=== PATIENT | male | born 1955 | race Caucasian/White ===

== ENCOUNTER 2024-04-01 06:21 | Observation (INO) ==
--- NOTE | 2024-03-05 12:44 | PAT Medication Instructions ---
Medication Instructions Date of Service March 05, 2024 Home Medications Medication Instructions Recorded ondansetron 4 mg disintegrating 4 mg PO Q6H PRN nausea and 07/02/23 tablet vomiting #10 tabs oxycodone 5 mg tablet 5 - 10 mg (1 - 2 x 5 mg) PO Q4H 07/02/23 PRN pain #8 tabs meloxicam 15 mg tablet 15 mg PO HS ondansetron 4 mg disintegrating tablet 4 mg PO Q6H PRN nausea and vomiting oxycodone 5 mg tablet 5 - 10 mg (1 - 2 x 5 mg) PO Q4H PRN pain tadalafil 5 mg tablet (Cialis) 5 mg PO DAILY PRN Sexual Activity ASK your surgeon for instructions meloxicam 15 mg tablet 15 mg PO HS STOP taking 24 hours before surgery tadalafil 5 mg tablet (Cialis) 5 mg PO DAILY PRN Sexual Activity Take morning of surgery With a small sip of water, OTHERWISE NOTHING TO EAT OR DRINK AFTER MIDNIGHT: ondansetron 4 mg disintegrating tablet 4 mg PO Q6H PRN nausea and vomiting (if needed) oxycodone 5 mg tablet 5 - 10 mg (1 - 2 x 5 mg) PO Q4H PRN pain (if needed) Take evening before surgery ondansetron 4 mg disintegrating tablet 4 mg PO Q6H PRN nausea and vomiting (if needed) oxycodone 5 mg tablet 5 - 10 mg (1 - 2 x 5 mg) PO Q4H PRN pain (if needed) Other Notes If you have any questions please call us at [phone] or [phone] or [phone] or [phone]
--- NOTE | 2024-03-18 11:17 | Anesthesiology Consultation ---
Date of Service March 18, 2024 Assessment & Plan (1) Encounter for pre-operative examination: - Outpatient joint assessment: Patient is currently scheduled for inpatient pathway. If re-evaluated and patient/surgeon requests outpatient pathway, patient is acceptable candidate for outpatient joint program from anesthesia standpoint pending surgeon's office assessment of pt motivation/support/completion of same day joint program preop requirements. Chart Review Chart Review: Acceptable Risk for Surgery and Patient seen in Pre Admission Testing Teaching & Discussion Pre-Anesthesia Teaching/Discussion Notes: Instructed NPO after midnight before surgery, except medications with 15 cc of water. Medication instructions provided according to the PAT guidelines. History Surgery Operation Date: 04/01/24 07:00 Proposed Procedures p Left Unicompartmental Versus - Rodger Damon MD s Total Knee Arthroplasty - Rodger Damon MD Height/Weight Height: 5 ft 10.5 in Weight: 89.4 kg Allergies Allergy/AdvReac Type Severity Reaction Status Date / Time Penicillins AdvReac Mild Hives Verified 03/03/24 11:26 Medications Home Medications Medication Instructions Recorded Confirmed Last Taken meloxicam 15 mg tablet 15 mg PO HS 06/26/23 03/03/24 Unknown ondansetron 4 mg disintegrating 4 mg PO Q6H PRN nausea and 07/02/23 03/03/24 Unknown tablet vomiting #10 tabs oxycodone 5 mg tablet 5 - 10 mg (1 - 2 x 5 mg) PO Q4H 07/02/23 03/03/24 Unknown PRN pain #8 tabs tadalafil 5 mg tablet (Cialis) 5 mg PO DAILY PRN Sexual Activity 03/03/24 03/03/24 Unknown Past Medical History Medical History (Updated 03/18/24 @ 11:14 by Lorena Garcia PA-C) GERD (gastroesophageal reflux disease) controlled, stable per pt History of anal fissures years ago>repaired Intermetatarsal bursitis Left knee DJD Plantar fasciitis of left foot Tendinitis of left ankle Patient denies h/o stroke, seizures, heart attack, heart failure, DM, HTN, blood clots/DVTs or blood transfusions. Exercise / Class Metabolic Activity II 4-5 Yardwork/Stairs/Walk up hill (denies chest discomfort or shortness of breath with one flight of stairs) Past Family History Family History (Updated 03/18/24 @ 11:13 by Lorena Garcia PA-C) Sister Diabetes Past Surgical History Surgical History History of arthroscopy of right knee (2006) Hx of arthroscopy of left knee (07/02/23) Hx of colonoscopy Past Anesthesia History No Hx of Anesthesia Complications and No Family Hx of Anesthesia Complications History of PONV No Hx of PONV and Hx of Motion Sickness Social History Smoking Status: Never smoker Do You Dip or Chew Tobacco: No Hx Alcohol Use: No Hx Substance Use: No substance use type: does not use Review of Systems Patient denies chest pain, shortness of breath, dyspnea on exertion, snoring, witnessed apneas, fever, chills, cough, wheezing, or palpitations. Physical Exam Vital Signs Vitals BP 145/91 P 73 TEMP 98.6 SP02 94% on RA RESP 17 Physical Patient resting comfortably in chair in no acute distress, alert and oriented, responding appropriately throughout visit Full cervical extension range of motion without pain TMD 3.5 finger breadths Mallampati Score 2 Dentition: one crown and permanent wire across back of lower teeth, denies chipped or loose teeth, caps, implants or bridges Lungs: normal respiratory effort. Good air movement, clear throughout to auscultation, no adventitious breath sounds Cardiac: regular rate and rhythm, no murmurs noted Carotid arteries: negative bruit bilat Lab Results Anesthesia Preop Results Results Anesthesia Widget: WBC 5.48 K/ul (4.8-10.8) 03/18/24 Hgb 16.4 g/dl (14.0-18.0) 03/18/24 Hct 47.2 % (42.0-52.0) 03/18/24 Plt 181 K/uL (130-400) 03/18/24 PT 10.8 Seconds (9.0-12.0) 03/18/24 PTT 26 Seconds (21-31) 03/18/24 INR 1.0 (0.9-1.1) 03/18/24 Blood Type A Positive 03/18/24 Antibody Screen NEGATIVE 03/18/24 Testing Laboratory Results 02/01/24 SODIUM: 139 POTASSIUM: 4.2 CHLORIDE: 103 CO2: 26 BUN: 14 CREATININE: 1.1 GLUCOSE: 103 Electrocardiogram Date: 04/29/23 NSR, rate 63 bpm Chest X-Ray Date: 03/18/24 No acute cardiopulmonary findings.
--- NOTE | 2024-03-28 10:07 | History & Physical Report ---
Date of Service March 28, 2024 Assessment & Plan (1) Left knee DJD: 68-year-old fairly active male in labor with a work-related injury over a year ago and history of a knee arthroscopy back in June without much relief. X- rays of showed progressive loss of his knee joint is developed progressive medial compartment arthritis. He is failed conservative measures. Plan: We talked about treatment options. He would like to proceed with definitive treatment. This is going to be some type of knee replacement. He is a good candidate for partial knee replacement specially with his work I think it will be better for him and suit him better. When taken the operating do left partial knee replacement. If we get in there and there is too much cell arthritis elsewhere we will proceed with a full knee replacement for the rest cement above these procedures were explained and he understands and desires to p terrenceeed. Informed consent was obtained. He is planned to be in the hospital overnight and do therapy next morning and hopeful discharge postop day 1. Plan on DVT prophylaxis including thigh-high teds, SCDs, aspirin twice a day. History of Present Illness Chief Complaint: . Persistent left medial knee pain after previous knee arthroscopy Primary Care Provider: Tiffany Granda MD . Patient is a 68-year-old gentleman who presents for persistent left medial knee pain and discomfort. 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 He injured his knee a with a Worker's Comp. related injury back in January of last year. He was stepping down off something and twisted his knee and acute onset of pain. He was treated by Dr. Feng had his knee scope back in June. I really never got much relief from this. His symptoms are just gradually gotten worse as time goes on. Has had more more bad days. Pain is almost all medially. Occurs think with increasing twisting activities. He is taken multiple different medicines without much relief. Minimal relief with a single injection. He now would like to have something more definitive done. Allergies Allergy/AdvReac Type Severity Reaction Status Date / Time Penicillins AdvReac Mild Hives Verified 03/03/24 11:26 Home Medications Medication Instructions Recorded Confirmed Type meloxicam 15 mg tablet 15 mg PO HS 06/26/23 03/03/24 History ondansetron 4 mg disintegrating 4 mg PO Q6H PRN nausea and 07/02/23 03/03/24 Rx tablet vomiting #10 tabs oxycodone 5 mg tablet 5 - 10 mg (1 - 2 x 5 mg) PO Q4H 07/02/23 03/03/24 Rx PRN pain #8 tabs tadalafil 5 mg tablet (Cialis) 5 mg PO DAILY PRN Sexual Activity 03/03/24 03/03/24 History Wheeled Walker #1 ea 03/24/24 Rx Past Med/Surg History Problem List Encounter for pre-operative examination Tendinitis of left foot Left knee DJD Intermetatarsal bursitis Tendinitis of left ankle Plantar fasciitis, left Posterior tibial tendinitis, left leg History of arthroscopy of left knee Operation Date: 07/02/23 07:00 Actual Procedures p Left Knee Arthroscopy, Partial Medial Meniscectomy, Chondroplasty medial femoral condyle (Left) - Emery Feng MD Medical History GERD (gastroesophageal reflux disease) controlled, stable per pt Intermetatarsal bursitis Tendinitis of left ankle Plantar fasciitis of left foot Left knee DJD History of anal fissures years ago>repaired Surgical History Hx of arthroscopy of left knee (07/02/23) Hx of colonoscopy History of arthroscopy of right knee (2006) Family History Sister Diabetes Social History Smoking Status: Never smoker Second Hand Exposure: No; Do You Dip or Chew Tobacco: No; Hx Alcohol Use: No Hx Substance Use: No Preferred Language: Dutch Communication Ability: Effective Ladle Repairer Required: No Beliefs That Will Affect Care: None Current Living Situation: Spouse Feels Safe at Home: Yes Assistive Devices: Contacts Review of Systems All systems reviewed & are unremarkable except as noted in HPI & below. Physical Exam . Physical examination reveals a pleasant healthy middle-age male. Looks in excellent health. Examination of the left knee reveals patient ambulates independently. Angel slight varus alignment to his knee. Small knee effusion. He is tender with medial joint line. Range of motion 0-1 25 for there is no instability. ACL appears intact. A little bit of laxity to valgus stress testing. No pain with hip motion. Negative straight leg raise. Constitutional WD/WN, vitals as above Neck trachea midline, no thyromegaly Respiratory normal respiratory effort, lungs clear to auscultation Cardiovascular RRR, no murmur, no edema Gastrointestinal (Abdomen) normal bowel sounds, soft, nontender, no hepatosplenomegaly Results & Data Results & Data Laboratory Results . Diagnostic Findings . 4 views of the left knee were reviewed. Shows fairly advanced medial compartment arthritis. Is got near complete loss of medial joint space. This has progressed since his previous films. PG Care Time/CCT Total # of Minutes Spent Total Time Spent with Patient: Total time spent is greater than 50% in coordination of care (as documented) at patient's floor/unit and/or counseling patient: Coding Level of Care Code None Diagnoses Left knee DJD M17.12
[2024-04-01] MEDS ORDERED: ROPIVACAINE 0.5% 5 MG/ML 30 ML VIAL ONE (06:32)
--- NOTE | 2024-04-01 06:40 | History & Physical Bridge Note ---
Date of Service April 01, 2024 History & Physical Bridge Note I have examined the patient, reviewed the History & Physical and in the interval since the performance of the History & Physical I have noted the following changes of clinical significance: no changes noted
[2024-04-01] MEDS: LR 500ML BOLUS, THEN 15ML/HR IV SCH (07:23)
[2024-04-01] MEDS: FAMOTIDINE 20 MG TAB PO SCH (07:23)
[2024-04-01] MEDS: LR 60ML/HR IV SCH (07:23)
[2024-04-01] MEDS: METOCLOPRAMIDE HCL 10 MG TABLET PO SCH (07:24)
[2024-04-01] MEDS: dexAMETHasone**PF** 10 MG/ML VIAL IV SCH (07:24)
[2024-04-01] MEDS: ACETAMINOPHEN 500 MG TAB PO SCH ×2 (07:24→13:32)
[2024-04-01] MEDS: CeleBREX 200 MG CAP PO SCH (07:24)
[2024-04-01] MEDS ORDERED: MIDAZOLAM HCL 1 MG/ML 2ML VIAL ONE ×2 (07:54→08:06)
[2024-04-01] MEDS ORDERED: fentaNYL citrate PF 100 MCG/2 ML VIAL ONE (07:54)
[2024-04-01] MEDS ORDERED: ePHEDrine sulfate 50 MG/ML AMP IV PRN (08:04)
[2024-04-01] MEDS ORDERED: ONDANSETRON INJ 2 MG/ML 2 ML VIAL IV PRN ×2 (08:04→12:22)
[2024-04-01] MEDS ORDERED: HYDROmorphone INJ 1 MG/ML SYRINGE IV PRN (08:04)
[2024-04-01] MEDS ORDERED: KETOROLAC 30 MG/ML VIAL IV PRN (08:04)
[2024-04-01] MEDS ORDERED: ATROPINE SULFATE 0.1 MG/ML 10ML SYR IV PRN (08:04)
[2024-04-01] MEDS: ceFAZolin 2000MG 2,000 MG/15 ML SYR IV SCH ×2 (08:42→16:57)
[2024-04-01] MEDS ORDERED: LIDOCAINE 2% 2 ML VIAL/AMP(20MG/ML) INFIL ONE (08:49)
[2024-04-01] MEDS ORDERED: PROPOFOL IV EMULSION 10 MG/ML 20 ML VIAL IV ONE (08:49)
[2024-04-01] MEDS ORDERED: ROCURONIUM BROMIDE 10 MG/ML 5 ML VIAL IV ONE (09:10)
[2024-04-01] MEDS ORDERED: SUGAMMADEX SODIUM 200 MG/2 ML VIAL IV ONE (09:11)
[2024-04-01] MEDS: ORTHO JOINT ANESTHETIC ONE (09:23)
[2024-04-01] MEDS: ROPIV 0.5% 246mg, Ketorolac 30mg, EPINEPHrine 0.5mg in NSS INFIL SCH (09:23)
[2024-04-01] MEDS: TRANEXAMIC ACID 1,000 MG **IV Intra-op IV SCH (09:52)
--- NOTE | 2024-04-01 10:49 | Operative Report ---
PG Post Operative Report Pre & Post Diagnosis Operation Date: 04/01/24 08:50 Pre-Op Diagnosis: Left Knee Degenerative Joint Disease Post-Op Diagnosis: Left Knee Degenerative Joint Disease I identified the patient and participated in the time-out.: Yes Procedure Operation Date: 04/01/24 08:50 Actual Procedures p Left medial unicompartmental Knee(Left) - Rodger Damon MD Surgeon Rodger Damon MD Teller Parish Saenz PA-C Estimated Blood Loss 25 Findings Consistent with Post-Op Diagnosis Operative findings revealed advanced medial compartment arthritis. Full- thickness cartilage loss of the medial femoral condyle and portions of the medial tibial plateau. The patellofemoral joint as well as the lateral compartment look quite pristine. He small to moderate-sized knee joint effusion. Specimens Left knee sent for pathology. 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 He was treated conservatively without adequate relief and echo x-rays and MRI revealed a medial meniscus tear. He had a knee scope. He really never recovered from that. He is continue to have persistent progressive medial knee pain. X-rays show show progressive loss of his medial joint space. He elected proceed with left parti al knee replacement. Description of Procedure Operative implants consist of: 1 [employer] [place] size large femoral component. 2. [employer] [place] left medial size D tibial tray. 3. 4 mm mobile-bearing polyethylene insert. The patient was taken the operating, identified, placed on the operating table in the supine position. All contact areas were appropriately padded. IV antibiotics tried by anesthesia team. A spinal anesthetic and abductor canal block had been provided in the holding area. A left thigh turn was then placed. Left lower extremities then prepped and draped in usual sterile fashion. The left leg was elevated exsanguinated with use of an Esmarch and the tourniquet was placed at 300 mmHg. An anterior approach the left knee was then performed through a longitudinal incision over the medial border the patella tendon. Extending from superior pole the patella to just medial to the tibial tubercle. It is fairly prominent tibial tubercle. Sharp dissection was carried through subcutaneous tissue down the extensor mechanism. Medial parapatellar arthrotomy incision was made. Some slight subperiosteal dissection was carried out medially taking great care to protect the MCL. The fat pad was resected. I examined the knee and the lateral compartment as well as the patellofemoral compartment for nearly pristine. His ACL was intact. We elected proceed with a partial knee replacement. The femur was sized to a size large. The large spoon was placed. The external tibial guide was then placed and attached to the large spleen with a 4G clamp. The tibial cutting guide was secured in place. The proximal tibial cut was made. The tibia sized to a size D. Attention drawn the femur. The intramedullary nikky was placed. The femoral guide was then placed and attached to the IM nikky. The holes were drilled for the distal femoral component. The posterior cutting guide was placed and the posterior cut was made. The knee was flexed. The remnants of the medial meniscus were removed. The 0 spigot was used milled the distal femur. We then trialed the knee and the 4 feeler gauge fit well in flexion and the 1 in extension. The femur was then milled with a 3 spigot. We then trialed the knee and was well-balanced with the 4 feeler gauge in both flexion and extension. We elect to place these implants. All trial implants were removed. Irrigated the wound extensively. We did inject locally with 100 cc of Ortho mix. The distal femur was prepared with the posterior osteophyte cutting guide as well as the anterior milling device. I did drill some holes in the distal femur for cement interdigitation. The tibial tray was pinned and then the toothbrush blade was used to create the keel component for the tibial tray. We then trialed the knee 1 more time and the 4 insert fit appropriately. Once again we irrigated the wound. Single batch [place] G cement was mixed. A [employer] [place] left medial size D tibial tray was cemented in place. A large femoral component was cemented in place. All extraneous cement was removed. The knee was brought out into about 30 degrees short of full extension and the 4 feeler gauge was placed until the cement hardened. Final cement check was then performed. We trialed the knee 1 more time. The 4 feeler gauge fit most appropriately. The 5 was just too tight. We placed the permanent insert. The knee tracked nicely. Is well-balanced. Attention drawn toward closing. Wounds irrigated coconuts of pulsatile lavage solution. The tourniquet was let down for tourniquet time 67 minutes. Hemostasis assured with electrocautery. Extensor Metros then closed with #1 Vicryl suture in a [id number] fashion. Extensor [place] checked found to be intact through subcutaneous tissues then closed with 2 Dexon suture in buried erupted fashion skin was closed with skin emmett. Leg was then cleaned and dried and sterile dressing was Xeroform, 4 4, ABD pad, sterile cast padding, Nolberto bandage were applied. The patient then transferred to the recovery room in stable condition. Patient tolerated procedure well and there were no complications. Parish Saenz, my physician podiatric assistant, was present for the entire procedure. His assistance was essential and required for appropriate patient positioning, prepping and draping, surgical exposure, performing the technical details of the operation, placement the implants, closure of the wound, and placement of the sterile bandage. I attest to the content of the Intraoperative Record and any orders documented therein. Any exceptions are noted below.
--- NOTE | 2024-04-01 11:21 | XRay Report ---
XR knee LT 1 or 2V routine HISTORY: 68 years-old Male Surgical Post Op left knee hemiarthroplasty COMPARISON: None TECHNIQUE: 2 views of the left knee FINDINGS: Medial compartment hemiarthroplasty. Overlying skin emmett with expected postoperative soft tissue s welling and deep tissue air. No acute fracture or malalignment. IMPRESSION: Medial compartment hemiarthroplasty with expected postoperative changes. ACT 112: Negative or not required by law. The above report was generated using voice recognition software. It may contain grammatical, syntax o r spelling errors. Electronically signed by: Alejandro Chavez M.D. 04/01/2024 11:20 AM
[2024-04-01] MEDS: SODIUM CHLORIDE 0.9% 1,000 ML IV SCH (12:15)
[2024-04-01] MEDS ORDERED: HYDROmorphone INJ 0.5 MG/0.5 ML SYR IV PRN (12:22)
[2024-04-01] MEDS ORDERED: oxyCODONE HCL IR 5 MG TAB (IMMEDIATE RELEASE) PO PRN (12:22)
[2024-04-01] MEDS ORDERED: bisacodyL 10 MG SUPP PR PRN (12:22)
[2024-04-01] MEDS ORDERED: ALUMINUM/MAGNESIUM SUSP 30 ML UDC PO PRN (12:22)
[2024-04-01] MEDS ORDERED: NALOXONE HCL 0.4 MG/1 ML VIAL/CARP IV PRN (12:22)
[2024-04-01] MEDS ORDERED: MAGNESIUM HYDROXIDE SUSP 30 ML UDC PO PRN (12:22)
[2024-04-01] MEDS ORDERED: METOCLOPRAMIDE HCL INJ 5 MG/ML 2 ML VIAL IV PRN (12:22)
[2024-04-01] MEDS ORDERED: TADALAFIL 5 MG PO PRN (12:22)
--- NOTE | 2024-04-01 12:52 | Anesthesiology Progress Note ---
Date of Service April 01, 2024 Anesthesia Post Procedure Vital Signs Vital Signs: Temp Pulse Pulse Resp BP Pulse Ox O2 Del Method 04/01/24 12:43 36.5 C 68 16 150/81 H 96 Room Air 04/01/24 12:10 36.5 C 74 16 157/81 H 95 Room Air 04/01/24 12:00 68 12 134/74 98 Room Air 04/01/24 11:45 70 16 131/71 95 Room Air 04/01/24 11:30 68 18 138/76 95 Room Air 04/01/24 11:15 67 20 133/76 95 Room Air 04/01/24 11:05 36.4 C L 68 15 132/73 96 Room Air 04/01/24 10:55 63 12 131/67 99 Room Air 04/01/24 10:45 67 14 124/64 99 Oxymask 04/01/24 10:37 36.1 C L 73 12 131/62 97 Oxymask 04/01/24 07:06 36.5 C 72 20 173/100 H 97 Room Air O2 Flow Rate 04/01/24 12:43 04/01/24 12:10 04/01/24 12:00 04/01/24 11:45 04/01/24 11:30 04/01/24 11:15 04/01/24 11:05 04/01/24 10:55 04/01/24 10:45 4 04/01/24 10:37 6 04/01/24 07:06 Transfer of Care Handoff Completed per policy Notes Mental Status: alert / awake / arousable Patient Amnestic to Procedure: Yes Nausea / Vomiting: adequately controlled Pain: adequately controlled Airway Patency, RR, SpO2: stable & adequate BP & HR: stable & adequate Hydration State: stable & adequate Neuraxial Anesthesia: was administered and sensory block is resolving Anesthetic Complications: no major complications apparent
[2024-04-01] MEDS: KETOROLAC TROMETHAMINE 15 MG/ML VIAL IV SCH (13:31)
[2024-04-01] MEDS: ASCORBIC ACID 500 MG TAB PO SCH (16:57)
[2024-04-01] MEDS ORDERED: SENNA 8.6 MG TAB PO SCH (21:00)
[2024-04-01] MEDS: DOCUSATE SODIUM 100 MG CAP PO SCH (21:38)
[2024-04-01] MEDS: SENNA 8.6 MG TAB PO SCH (21:38)
[2024-04-01] MEDS: ASPIRIN 81 MG ECTAB PO SCH (21:38)
--- NOTE | 2024-04-02 07:11 | Surgery Progress Note ---
Date of Service April 02, 2024 Assessment & Plan (1) Status post left partial knee replacement: Plan: 68-year-old gentleman postop day 1 from left partial knee replacement doing well. Pains controlled. He is neurologically intact. Looking forward to going home today. Plan: 1. DVT prophylaxis including thigh-high teds, SCDs, aspirin twice a day. 2. PT/OT. Weight-bear as tolerated. Left total knee protocol. 3. Pain control doing well with current pain regimen. 4. Disposition. Plan is to discharge to home with some home health after therapy today. Admission and Anticipated Discharge Date Admission Date: April 01, 2024 Subjective 68-year-old gentleman now postop day 1 from a left partial knee replacement. He is doing well. I really not much pain at all this morning. He is up dressed and ready to go. Physical Exam Physical Exam: Physical examination was a pleasant middle-age male. He is lying in bed. He is all dressed and ready for the day. Examination of the left knee and leg reveals the dressing be clean dry and intact he can dorsiflex and plantarflex his foot appropriately. He is got a good straight leg raise. Respiratory: normal respiratory effort, lungs clear to auscultation Cardiovascular: RRR, no murmur, no edema Gastrointestinal (Abdomen): normal bowel sounds, soft, nontender, no hepatosplenomegaly Results & Data Vital Signs (Past 12 Hours) Vital Signs Temp Pulse Resp BP Pulse Ox O2 Del Method 04/02/24 03:33 36.5 C 56 L 16 133/70 95 Room Air 04/01/24 23:36 36.7 C 65 16 130/66 95 Room Air 04/01/24 20:00 Room Air 04/01/24 19:21 36.4 C L 67 16 133/72 95 Room Air PG Care Time/CCT Total # of Minutes Spent Total Time Spent with Patient: Total time spent is greater than 50% in coordination of care (as documented) at patient's floor/unit and/or counseling patient: Coding Level of Care Code 80198 Post Operative Follow-Up Diagnoses Status post left partial knee replacement Z96.652
[2024-04-02] MEDS: MULTIVITAMIN TAB PO SCH (08:05)
[2024-04-02] MEDS: TAMSULOSIN HCL 0.4 MG CAP PO SCH (08:05)
[2024-04-02] MEDS: dexAMETHasone 10 MG in SYRINGE 0 ML IV SCH (08:07)
--- NOTE | 2024-04-02 08:57 | Discharge Summary ---
Date of Service April 02, 2024 Admission HPI Per Admitting Provider Chief Complaint: Persistent left medial knee pain after previous knee arthroscopy Primary Care Provider: Tiffany Granda MD Patient is a 68-year-old gentleman who presents for persistent left medial knee pain and discomfort. 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 He injured his knee a with a Worker's Comp. related injury back in January of last year. He was stepping down off something and twisted his knee and acute onset of pain. He was treated by Dr. Feng had his knee scope back in June. I really never got much relief from this. His symptoms are just gradually gotten worse as time goes on. Has had more more bad days. Pain is almost all medially. Occurs think with increasing twisting activities. He is taken multiple different medicines without much relief. Minimal relief with a single injection. He now would like to have something more definitive done. (1) Left knee DJD: 68-year-old fairly active male in labor with a work-related injury over a year ago and history of a knee arthroscopy back in June without much relief. X- rays of showed progressive loss of his knee joint is developed progressive medial compartment arthritis. He is failed conservative measures. Plan: We talked about treatment options. He would like to proceed with definitive treatment. This is going to be some type of knee replacement. He is a good candidate for partial knee replacement specially with his work I think it will be better for him and suit him better. When taken the operating do left partial knee replacement. If we get in there and there is too much cell arthritis elsewhere we will proceed with a full knee replacement for the rest cement above these procedures were explained and he understands and desires to proceed. Informed consent was obtained. He is planned to be in the hospital overnight and do therapy next morning and hopeful discharge postop day 1. Plan on DVT prophylaxis including thigh-high teds, SCDs, aspirin twice a day. Admission Exam Per Admitting Provider Physical examination reveals a pleasant healthy middle-age male. Looks in excellent health. Examination of the left knee reveals patient ambulates independently. Angel slight varus alignment to his knee. Small knee effusion. He is tender with medial joint line. Range of motion 0-1 25 for there is no instability. ACL appears intact. A little bit of laxity to valgus stress testing. No pain with hip motion. Negative straight leg raise. Constitutional WD/WN, vitals as above Neck trachea midline, no thyromegaly Respiratory normal respiratory effort, lungs clear to auscultation Cardiovascular RRR, no murmur, no edema Gastrointestinal (Abdomen) normal bowel sounds, soft, nontender, no hepatosplenomegaly Diagnostic Findings 4 views of the left knee were reviewed. Shows fairly advanced medial compartment arthritis. Is got near complete loss of medial joint space. This has progressed since his previous films. Principal Diagnosis Same as "Discharge Diagnosis" noted below under Discharge Instructions. Discharge Exam Physical examination was a pleasant middle-age male. He is lying in bed. He is all dressed and ready for the day. Examination of the left knee and leg reveals the dressing be clean dry and intact he can dorsiflex and plantarflex his foot appropriately. He is got a good straight leg raise. GENERAL: AA&Ox3, NAD. Pleasant, affect is calm. Sitting in bed and appears comfortable. RESPIRATORY: Normal respiratory effort with no signs of distress. CHEST/AXILLA: Chest movement symmetrical. No deformities noted. SKIN: [place], warm and dry. MS/EXTREMITY: Knee dressing & DANILO wrap c/d/i. YADIRA hose donned to contralateral LE. + ankle dorsi/plantarflexion. NVI distally. Calf soft/NT. PT/DP intact. Discharge Data Allergies Allergy/AdvReac Type Severity Reaction Status Date / Time Penicillins AdvReac Mild Hives Verified 04/01/24 06:48 Procedures Performed Operation Date: 04/01/24 08:50 Actual Procedures p Left Unicompartmental Knee(Left) - Rodger Damon MD Ordered Studies 04/01/24 05:00 US - OR guided needle placemen Routine Knee X-Ray 04/01/24 10:41 XR knee LT 1 or 2V routine HISTORY: 68 years-old Male Surgical Post Op left knee hemiarthroplasty COMPARISON: None TECHNIQUE: 2 views of the left knee FINDINGS: Medial compartment hemiarthroplasty. Overlying skin emmett with expected postoperative soft tissue swelling and deep tissue air. No acute fracture or malalignment. IMPRESSION: Medial compartment hemiarthroplasty with expected postoperative changes. ACT 112: Negative or not required by law. The above report was generated using voice recognition software. It may contain grammatical, syntax or spelling errors. Electronically signed by: Alejandro Chavez M.D. 04/01/2024 11:20 AM Hospital Course (1) Status post left partial knee replacement: On April 01, 2024 Rex arrived at [facility] operating room and underwent a left partial knee replacement without complications. Patient had a an adductor canal block and spinal anesthetic for the procedure. Postoperatively, patient was transferred to the general orthopedic floor in stable condition and eventually started onto aspirin 81 mg twice daily for DVT prophylaxis as appropriate. Patient's hospital course was uneventful. On postoperative day #1, patient's vital signs were stable and pain was well- controlled. Patient was able to participate well with physical therapy, safely performing the necessary ambulation and range of motion exercises and properly demonstrating ADL tasks. Patient was then discharged home in stable condition, with home health care services to begin. Patient will follow-up with orthopedics in 2 to 3 weeks for postoperative care. Plan 68-year-old gentleman postop day 1 from left partial knee replacement doing well. Pains controlled. He is neurologically intact. Looking forward to going home today. Plan: 1. DVT prophylaxis including thigh-high teds, SCDs, aspirin twice a day. 2. PT/OT. Weight-bear as tolerated. Left total knee protocol. 3. Pain control doing well with current pain regimen. 4. Disposition. Plan is to discharge to home with some home health after therapy today. Total Time Total Time Spent Total Time Spent (In Minutes): Total Time Spent with Patient: Total time spent is greater than 50% in coordination of care (as documented) at patient's floor/unit and/or counseling patient: Discharge Plan Discharge Items Patient Disposition: Home - Home Health Services Reason For Visit: Left Knee Degenerative Joint Disease Discharge Diagnosis: Left Partial Knee Replacement Activity: Per Instructions section Weightbearing: Full weightbearing Non-emergency contact: Surgeon Call non-emergency contact if: you have any medication questions Follow-up/Referrals: Tiffany Granda MD [Primary Care Provider] - Diet: Regular Addtl Attending Provider Instructions: ACTIVITY RECOMMENDATIONS: Physical Therapy: * You will go to physical therapy three times each week for four to six weeks after your surgery in order to regain your knee range of motion and to retrain your knee to work properly. * It is just as important to make sure you are getting your knee perfectly straight as it is to regain your knee bend. * Taking a pain pill an hour before therapy can help you have a more productive and comfortable therapy session. Home Exercise: * You were shown a series of exercises (heel props, heel slides, etc.) in the hospital. Do these exercises three to four times each day including the exercises you were shown in physical therapy. Walking: * Get up and walk several times each day. For the first four weeks, try not to stand or walk for more than one hour at a time. If you do stand or walk for more than one hour, you will not hurt anything, but your knee and leg will likely swell. * As you feel comfortable, you may change from the walker or crutches to a cane and then to independent walking. MEDICATIONS: New Medicine: * You will likely be taking one or more of these medications: 1. Oxycodone - A quick and shorter-acting pain medication. Take one to two tablets every six hours to lessen your pain. 2. Aspirin - Thins your blood to lessen the chance of forming a blood clot. * The most common side effects of pain medicine and iron are nausea and constipation. If nausea or constipation is too much of a problem or if you have any questions about your new medicines or doses, call [facility] at . We will try to help you manage these issues. "VERY IMPORTANT TO READ AND REVIEW" Pain: * The immediate post-operative period after knee replacement surgery is often quite painful. * You are given a prescription for pain medicine. You should take it, as directed, when you need it, especially before physical therapy and before going to bed. Pain that interferes with sleep is very common and can last several months. * You will likely need pain medicine for the first four to six weeks. It will not stop all of the pain. The pain will lessen and as you feel better, you may change to milder pain medicine such as Tylenol. * The most common side effects of pain medicine are nausea and constipation, so don't take more than you need. SPECIAL CARE INSTRUCTIONS: TEDs/Elastic Stockings: * The white elastic stockings help limit swelling and prevent blood clots from forming in your legs. The more you wear them, the more they work. * Wear them for six weeks after knee replacement surgery and four weeks after partial knee replacement. Incision Site Care: * Remove dressing postoperative day 2 and then shower. Keep direct shower pressure off the incision site. * After showering, cover emmett with dry gauze and change daily or more frequently if the dressing is getting saturated with drainage. * Use the YADIRA stockings to hold dressing in place. DO NOT apply tape on the skin. * May completely stop using bandage if wound is dry and no drainage * Emmett are removed between 2 and 3 weeks post-op. If your follow-up appointment is made before 2 weeks, please have your appointment re- scheduled. It is too early to remove the emmett. Prevention of Infection: * Take antibiotics one hour before any dental cleaning, dental work, urological procedure, gastrointestinal procedure or any invasive surgery in order to prevent your new joint from getting infected. * You may get the antibiotics from the doctor performing the procedure or you may call our office at [phone] before and we will call in a prescription to the pharmacy of your choice. Things to Watch For: * Drainage from the incision site that occurs more than one week after your surgery. * Severely increased knee/leg pain or swelling. * Increased redness at the incision site. * Fever above 102 degrees Fahrenheit. * Unusual chest pain or shortness of breath. * Unusual pain or burning with urination. Call [facility] at [phone] with any of the above problems or if you have any questions about your medicines or recovery. FOLLOW UP VISIT: Make an appointment to see your doctor for approximately two weeks after surgery for a progress check and staple removal by calling the office at [phone]. Pending Studies at Discharge: No Stand-Alone Forms: My [facility], Smoking Cessation Medications and DC Order Prescriptions: [facility]ued (DME[facility] See Rx Instructions .MEDSUPPLY Qty: 1 0RF Rx Instructions: As directed oxycodone 5 mg tablet 5 - 10 mg PO Q6 PRN (Reason: pain) Qty: 40 0RF Rx Instructions: Take as needed for pain ondansetron 4 mg tablet,disintegrating 4 mg PO Q8 PRN (Reason: nausea) Qty: 20 1RF Rx Instructions: Take as needed for nausea ketorolac 10 mg tablet 10 mg PO Q6 5 Days Qty: 20 0RF Rx Instructions: Take 4 times per day with food for 5 days to lessen pain and swelling. sennosides [Senokot] 8.6 mg tablet 8.6 mg PO BID 14 Days Qty: 28 0RF Rx Instructions: Take two times a day to prevent/treat constipation acetaminophen [Tylenol Extra Strength] 500 mg tablet 1,000 mg PO TID 30 Days Qty: 180 0RF Rx Instructions: Take 3 times per day to lessen pain. aspirin [Medhat Low Dose Aspirin] 81 mg tablet,delayed release (DR/EC) 81 mg PO BID 45 Days Qty: 90 0RF Rx Instructions: Take to prevent blood clots. tamsulosin [Flomax] 0.4 mg capsule 0.4 mg PO DAILY Qty: 7 0RF Rx Instructions: Begin night BEFORE surgery to prevent urinary retention cefadroxil 500 mg capsule 500 mg PO BID 7 Days Qty: 14 0RF Rx Instructions: Take 1 cap twice a day to prevent infection ondansetron 4 mg tablet,disintegrating 4 mg PO Q6H PRN (Reason: nausea and vomiting) Qty: 10 0RF oxycodone 5 mg tablet 5 - 10 mg PO Q4H MDD 6 tablets PRN (Reason: pain) Qty: 8 0RF tadalafil [Cialis] 5 mg Tablet 5 mg PO DAILY PRN (Reason: Sexual Activity) Rx Instructions: administer approximately 30min before sexual activity; do not use more than 1 dose per 24hrs Discontinued meloxicam 15 mg tablet 15 mg PO Admission Data Admit Date/Time: 04/01/24 10:41 Attending Provider: Rodger Damon Admit Provider: Rodger Damon Primary Care Provider: Tiffany Granda Other Providers: [facility],[place]
== END 2024-04-02 12:13 | disposition home health service (06) ==
LOC: 3E 06:21 → ASU 06:21